=== PATIENT | male | born 1990 | race Caucasian/White ===

== ENCOUNTER 2019-05-02 14:25 | Emergency (ER) | payer SELFPAY ==
[~2019-05-02] VITALS: Ht 182.9 cm; Wt 81.6 kg
[2019-05-02 14:35] VITALS: BP 119/74
--- NOTE | 2019-05-02 14:37 | NUR ---
ED Nurse Note: Pt brought in the ER under custody w/ [employer] due to behavioral complaint, "possibly under substance affect", was carrying short gun around. Pt restless, rambling but calm and cooperative upon arrival. [employer] officer Tavia #[id number] here with patient. HR 109 upon arrival, other VSS. Will cont to monitor.
--- NOTE | 2019-05-02 14:56 | Emergency Room Report ---
History of Present Illness General Chief Complaint: Medical Clearance Source: Patient Present Illness HPI 28 YO male presents to the ED C/O non itchy rdy of rash on posterior neck/scalp x months. Denies pain. Denies open wounds or bleeding. Denies CP, Palpitations , abdominal pain, Trauma or fall. Denies lesions/rashes elsewhere on the body. Denies new medications or body washes or creams. Denies swelling of the lips, tongue , throat or airway. Denies wheezing, or shortness of breath. Denies recent travel, recent illness or ill contacts. denies blisters, oral lesions, or sloughing of the skin Pt. reports psychiatric hx of ADHD,OCD, and Bi-polar- depression. States he was on medications but due to insurance reasons he is no longer taking medications. He reports attempt to self-medicate with [facility] wart. Pt. endorses hallucinogenic/psychoactive drug use " spiritual experiences" reports last use was when he was in [place] with his GF. Denies use in the last 72 hours. No other symptoms/ complaints at this time. no aggravating or relieving factors. Allergies: Coded Allergies: No Known Allergies (Unverified , 05/02/19) Patient History Past Medical History: see triage record, psych hx - ocd, adhd, bi-polar- depression--not taking meds due to insurance reasons - per pt. Past Surgical History: none Pertinent Family History: none Social History: Reports: smoking, drug use Reviewed Nursing Documentation: PMH: Agreed; PSxH: Agreed Nursing Documentation-PMH Past Medical History: No Stated History Review of Systems All Other Systems: negative except mentioned in HPI Physical Exam Vital Signs Date Time Temp Pulse Resp B/P (MAP) Pulse Ox O2 Delivery O2 Flow Rate FiO2 05/02/19 14:32 98.6 109 20 119/74 (89) 95 Room Air Sp02 EP Interpretation: reviewed, normal General Appearance: no apparent distress, alert, GCS 15, non-toxic Head: normocephalic, atraumatic Eyes: bilateral eye normal inspection, bilateral eye PERRL ENT: hearing grossly normal, normal voice Neck: full range of motion Respiratory: chest non-tender, lungs clear, normal breath sounds, no wheezing, rales, speaking full sentences Cardiovascular #1: regular rate, rhythm, normal capillary refill, tachycardia - mild Gastrointestinal: normal bowel sounds, non tender, soft, non-distended, no guarding Musculoskeletal: back normal, gait/station normal, normal range of motion, non- tender Neurologic: alert, oriented x3, responsive, motor strength/tone normal, sensory intact, speech normal, grossly normal Psychiatric: judgement/insight normal Skin: normal color, warm/dry, well hydrated, rash - eczemayous rash on the left side of the nape of the neck. no blisters or vesicles Medical Decision Making PA Attestation Dr. Ruiz is my supervising Physician whom patient management has been discussed with. Diagnostic Impression: Primary Impression: Medical clearance for incarceration Additional Impressions: Rash and nonspecific skin eruption History of psychoactive drug abuse History of marijuana use ER Course 28 YO male presents to the ED C/O non itchy rdy of rash on posterior neck/scalp x months. Denies pain. Denies open wounds or bleeding. Denies CP, Palpitations , abdominal pain, Trauma or fall. Denies lesions/rashes elsewhere on the body. Denies new medications or body washes or creams. Denies swelling of the lips, tongue , throat or airway. Denies wheezing, or shortness of breath. Denies recent travel, recent illness or ill contacts. denies blisters, oral lesions, or sloughing of the skin Pt. reports psychiatric hx of ADHD,OCD, and Bi-polar- depression. States he was on medications but due to insurance reasons he is no longer taking medications. He reports attempt to self-medicate with [facility] wart. Pt. endorses hallucinogenic/psychoactive drug use " spiritual experiences" reports last use was when he was in [place] with his GF. Denies use in the last 72 hours. No other symptoms/ complaints at this time. no aggravating or relieving factors. Ddx considered but are not limited to Head Trauma, SC, ACS, SI/HI, URI, SAH, Fractures, Dislocations, Tazer barbs, Abrasions. Vital signs: are generally WNL other than mild tachycardia, pt. is afebrile H&PE are most consistent with: normal limited physical examination. ORDERS: none required at this time, the diagnosis is clinical ED INTERVENTIONS: None required at this time. DISCHARGE: At this time pt. is stable for d/c to law enforcement. Will provide printed patient care instructions, and any necessary prescriptions. Care plan and follow up instructions have been discussed with the patient prior to discharge. Last Vital Signs Date Time Temp Pulse Resp B/P (MAP) Pulse Ox O2 Delivery O2 Flow Rate FiO2 05/02/19 14:35 98.6 109 20 119/74 95 Room Air Status: unchanged Disposition: D/C TO LAW ENFORCEMENT IN CUST Condition: Stable Patient Instructions: Medical Screening Exam Additional Instructions: Take any previously prescribed medications as directed. Follow up with a Primary Care Provider in 3-5 days, even if your symptoms have resolved. Return sooner to ED if new symptoms occur, or current symptoms become worse. - Please note that this Emergency Department Report was dictated using [employer] technology software, occasionally this can lead to erroneous entry secondary to interpretation by the dictation equipment. Ernestina Man May 02, 2019 14:56
--- NOTE | 2019-05-02 15:00 | NUR ---
ER DISCHARGE NOTE: Patient is cleared to be discharged per ERMD, pt is aox4, on room air, with stable vital signs. pt was given dc and prescription instructions, pt was able to verbalize understanding, pt id band removed. pt is able to ambulate with steady gait. pt took all belongings.
[2019-05-02 15:01] VITALS: BP 119/74
== END 2019-05-02 15:01 ==
LOC: EMR 14:45
DX: R21 Rash and other nonspecific skin eruption (principal); F31.9 Bipolar disorder, unspecified; F32.9 Major depressive disorder, single episode, unspecified; F17.200 Nicotine dependence, unspecified, uncomplicated; R00.0 Tachycardia, unspecified
CPT/HCPCS: 99282